=== PATIENT | female | born 1970 | race Caucasian/White ===

== ENCOUNTER 2017-01-10 06:02 | Emergency (ER) | payer OTHER ==
[~2017-01-10] VITALS: Ht 165.1 cm; Wt 101.6 kg
[~2017-01-10 06:02] MED LIST: ACETAMINOPHEN/H1 TAB PO; ALBUTEROL SULFAT3 M1 INH; CALCIUM + D 6001 TAB PO; CONCERTA18 MG PO; CONCERTA27 MG PO; FISH OIL CONC1000 MG PO; IBUPROFEN800 MG PO; KLONOPIN0.5 M1 PO; LEXAPRO 20MG M20 MG PO; LEXAPRO20 M1 PO; MEDROL DOSEPAK1 PAC PO; NEBULIZER MACHINE INH; PRILOSEC OTC20 MG PO; VENTOLIN HFA18 GM INH; VICODIN5-300 PO; VITAMIN B-121000 MC3 PO; VITAMIN D31000 UNI2 PO
--- NOTE | 2017-01-10 06:10 | ED GI/GU/ABDOMINAL COMPLAINT ---
History of Present Illness General Chief Complaint: Abdominal Pain/Flank Pain Stated Complaint: ABD PAIN LUQ RADIATING TO BACK Source: patient Exam Limitations: no limitations Vital Signs & Intake/Output Vital Signs & Intake/Output Vital Signs Date Time Temp Pulse Resp B/P Pulse O2 O2 Flow FiO2 Ox Delivery Rate 01/10 0614 97.8 98 18 132/80 98 Room Air Allergies Coded Allergies: azithromycin (Severe, GI UPSET 12/15/15) amoxicillin (Intermediate, NAUSEA 12/15/15) oxycodone (Mild, ITCHING 12/15/15) erythromycin base (NAUSEA 12/15/15) Triage Nurses Notes Reviewed? yes ? N Is pt currently ? No Onset: Abrupt Duration: hour(s): (7) Timing: multiple episodes today Quality/Severity: moderate, sharpness, severe Severity Numbers: 9 Location: left lower quadrant, right lower quadrant Radiation: back Activities at Onset: none No Modifying Factors: none HPI: This is a 46-year-old female with history of previous renal colic resents to the ER for chief complaint of upper abdominal pain radiating to the back since 1:00 last night. For dinner she had 2 pieces of pizza and for lunch she had a hamburger. She states in general she had been eating healthier until yesterday. Positive nausea but no vomiting. She states the pain was constant all night long. History of similar symptoms that lasted for an hour and went away in the past. She has never had pain that lasted this long. She describes it as sharp and deep and aching. History of left-sided flank pain with kidney stones. She is unsure if this back pain is similar to her previous kidney stone pain. Denies any urinary symptoms. Denies any observation or diarrhea. No chest pain or shortness of breath. (MARKY PARKS,COOKIE) Reconcile Medications Albuterol Sulfate (Ventolin Hfa) 90 MCG HFA.AER.AD 2 PUF INH Q4-6 PRN PRN SHORTNESS OF BREATH (Reported) Albuterol Sulfate 2.5 MG/3 ML (0.083 %) VIAL.NEB 1 Vial INH/HAMILTON Q4P PRN SHORTNESS OF BREATH (Reported) Cholecalciferol (Vitamin D3) 1,000 UNIT TABLET 3 TAB PO DAILY SUPPLEMENT ( Reported) Clonazepam (Klonopin) 0.5 MG TABLET 1 TAB PO TIDPRN PRN ANXIETY (Reported) Cyanocobalamin (Vitamin B-12) 1,000 MCG TABLET 1 TAB PO DAILY SUPPLEMENT ( Reported) Dextroamphetamine/Amphetamine (Dextroamp-Amphetamin 10 MG Tab) 10 MG TABLET 1 TAB PO DAILY PRN ADHD (Reported) Escitalopram Oxalate (Lexapro) 20 MG TABLET 1 TAB PO DAILY ANXIETY (Reported) Ferrous Sulfate 325 MG (65 MG IRON) TABLET 1 TAB PO Q48 SUPPLEMENT (Reported) (LUISA PARKS,BEBE Caldera) Past History Travel History Traveled to [place] past 21 day No Medical History Any Pertinent Medical History? see below for history Neurological: NONE EENT: NONE Cardiovascular: SINUS TACHYCARDIA Respiratory: asthma Gastrointestinal: NONE Hepatic: NONE Renal: LITHROTRIPSY Musculoskeletal: L FOOT SURGERY Psychiatric: anxiety Endocrine: NONE Blood Disorders: NONE Cancer(s): NONE History of MRSA: No History of VRE: No History of CDIFF: No Surgical History Surgical History: LTIHOTRIPSY, HYSTERECTOMY, BREAST REDUCTION, PLANTAR FASCIITIS Psychosocial History Who do you live with Significant Other Services at Home None What is your primary language [place] Tobacco Use: Never used ETOH Use: denies use Illicit Drug Use: denies illicit drug use Family History Hx Contributory? Yes (COOKIE NEGRO MD) Review of Systems Review of Systems Constitutional: Denies: chills, fever. EENTM: Reports: no symptoms. Respiratory: Denies: cough, short of breath, sputum production. Cardiovascular: Denies: chest pain, palpitations. GI: Reports: abdominal pain, nausea. Denies: vomiting. Genitourinary: Reports: no symptoms. Musculoskeletal: Reports: back pain. Skin: Reports: no symptoms. Neurological/Psychological: Reports: no symptoms. Hematologic/Endocrine: Denies: bruising, bleeding, polyuria, polydipsia. Immunologic/Allergic: Denies: splenectomy. All Other Systems: Reviewed and Negative (COOKIE NEGRO MD) Physical Exam Physical Exam General Appearance: well developed/nourished, alert, awake, mild distress, moderate distress Head: atraumatic, normal appearance Eyes: Bilateral: normal appearance, PERRL, EOMI. Ears, Nose, Throat, Mouth: hearing grossly normal, moist mucous membrane Neck: normal inspection, supple, full range of motion Respiratory: normal breath sounds, chest non-tender, no respiratory distress Cardiovascular: regular rate/rhythm Peripheral Pulses: 2+ radial (R), 2+ radial (L) Gastrointestinal: soft, tenderness (RUQ), POSITIVE MURPHYS Back: normal inspection, normal range of motion Extremities: normal range of motion Neurologic/Psych: no motor/sensory deficits, awake, alert, oriented x 3 Skin: intact, normal color, warm/dry Core Measures ACS in differential dx? No Severe Sepsis Present: No Septic Shock Present: No (MARKY PARKS,COOKIE) Progress Differential Diagnosis: biliary colic, cholecystitis, kidney stone, pancreatitis , peptic ulcer, PUD/GERD, perforated viscous, UTI/pyelo Plan of Care: Orders Procedure Date/time Status URINALYSIS 01/10 618 Complete LIPASE 01/10 618 Complete COMPREHENSIVE METABOLIC PANEL 01/10 618 Complete CBC WITHOUT DIFFERENTIAL 01/10 618 Complete AMYLASE 01/10 618 Complete Laboratory Tests 01/10/17 0752: Urinalysis LIGHT H, Urine Color YEL, Urine Clarity HAZY H, Urine pH 7.5, Ur Specific Zirconia 1.020, Urine Protein 30 H, Urine Ketones NEG, Urine Nitrite NEG, Urine Bilirubin NEG, Urine Urobilinogen 0.2, Ur Leukocyte Esterase NEG, Ur Microscopic SEDIMENT EXAMINED, Urine RBC RARE, Urine WBC 1-3 H, Ur Epithelial Cells MOD H, Urine Bacteria FEW H, Hyaline Casts FEW H, Granular Casts FEW H , Urine Mucus MOD H, Urine Hemoglobin NEG, Urine Glucose NEG 01/10/17 0640: Anion Gap 11, Estimated GFR > 60, BUN/Creatinine Ratio 17.1, Glucose 104 H, Calcium 9.6, Total Bilirubin 0.3, AST 14, ALT 24, Alkaline Phosphatase 61, Total Protein 7.0, Albumin 4.1, Globulin 2.9, Albumin/Globulin Ratio 1.4, Amylase 47, Lipase 103, CBC w Diff NO MAN DIFF REQ, RBC 4.69, MCV 83.2, MCH 27.5, RDW 14.1, MPV 8.9, Gran % 70.8, Lymphocytes % 22.7, Monocytes % 4.7, Eosinophils % 1.4, Basophils % 0.4, Absolute Granulocytes 6.9 H, Absolute Lymphocytes 2.2, Absolute Monocytes 0.5, Absolute Eosinophils 0.1, Absolute Basophils 0, PUBS MCHC 33.1 Diagnostic Imaging: Viewed by Me: Ultrasound. Discussed w/RAD: Ultrasound. Initial ED EKG: none Hand-Off Endorsed To: BEBE MORAN MD Endorsed Time: 0700 Pending: labs, ultrasound (MARKY PARKS,COOKIE) Radiology Impression: PATIENT: SHIRA ESCALANTE PRESENT AGE: 46 PATIENT ACCOUNT NO: [id number] : 70 LOCATION: [facility] ORDERING PHYSICIAN: BEBE MORAN MD SERVICE DATE: 01/10/17 EXAM TYPE: US - US-COMPLETE ABDOMEN EXAMINATION: US ABDOMEN COMPLETE CLINICAL INFORMATION: Flank pain per. COMPARISON: CT abdomen and pelvis 05/29/2014. TECHNIQUE: Real-time imaging of the abdominal viscera. FINDINGS: The exam is limited secondary to body habitus. PANCREAS: Normal. ABDOMINAL AORTA: The proximal segment is normal in caliber. INFERIOR VENA CAVA: Visualized portions are normal. LIVER: The liver demonstrates normal size, contour and increased echogenicity echogenicity. No focal lesion or intrahepatic biliary duct dilatation. GALLBLADDER: The gallbladder is distended suggestive of hydrops. It measures 11.9 cm in length. The gallbladder is physiologically distended without evidence of stones, sludge, polyps, wall thickening or pericholecystic fluid. COMMON BILE DUCT: Normal in caliber measuring 0.6 cm in diameter. RIGHT KIDNEY: Normal. No hydronephrosis. No renal calculi or focal parenchymal lesions. The kidney measures 10.5 cm in maximum dimension. LEFT KIDNEY: Normal. No hydronephrosis. No renal calculi or focal parenchymal lesions. The kidney measures 12.3 cm in maximum dimension. SPLEEN: Normal. The spleen measures 9.8 cm in maximum dimension. FREE FLUID: None. IMPRESSION: Echogenic liver probably from fatty infiltration. Otherwise rest of the abdominal ultrasound is unremarkable. DICTATED BY: LAVELL CARDONA MD DATE/TIME DICTATED:01/10/17920 [employer] HAND:IRMA DATE/TIME TRANSCRIBED:01/10/17920 CONFIDENTIAL, DO NOT COPY WITHOUT APPROPRIATE AUTHORIZATION. <Electronically signed in Other Vendor System> SIGNED BY: LAVELL CARDONA MD 01/10/17 0928 (BEBE MORAN MD) Departure Departure Condition: Stable Clinical Impression Primary Impression: Abdominal pain Referrals: GRACIELA LINDSEY MD (PCP/Family) Departure Forms: Customer Survey General Discharge Information (MARKY PARKSCOOKIE) Departure Disposition: HOME OR SELF CARE Additional Instructions: RETURN IF SYMPTOMS WORSEN OR FOR ANY CONCERNS Prescriptions: Current Visit Scripts Tramadol HCl 1 TAB PO Q6P PRN PAIN #20 TAB (LUISA PARKS,BEBE Caldera)
[2017-01-10 06:14] VITALS: BP 132/80
[2017-01-10 06:55] LABS: ABSOLUTE BASOPHIL COUNT 0 /CUMM (0.0-0.2); ABSOLUTE EOSINOPHIL COUNT 0.1 /CUMM (0.0-0.7); ABSOLUTE GRANULOCYTE CT 6.9 /CUMM (1.4-6.5); ABSOLUTE LYMPH COUNT 2.2 /CUMM (1.2-3.4); ABSOLUTE MONOCYTE COUNT 0.5 /CUMM (0.10-0.60); BASOPHIL % 0.4 % (0.0-2.0); EOSINOPHIL % 1.4 % (0-5); GRANULOCYTE % 70.8 % (42.2-75.2); MEAN CORPUSCULAR HGB 27.5 PG (27.0-31.0); MEAN CORPUSCULAR HGB CONC 33.1 G/DL (33.0-37.0); MEAN CORPUSCULAR VOLUME 83.2 FL (81.0-99.0); MEAN PLATELET VOLUME 8.9 FL (7.4-10.4); PLATELET COUNT 270 /CUMM (130-400); RBC DISTRIBUTION WIDTH 14.1 % (11.5-14.5); RED BLOOD CELL CT 4.69 /CUMM (4.20-5.40); WHITE BLOOD CELL COUNT 9.7 /CUMM (4.8-10.8)
--- NOTE | 2017-01-10 09:28 | ULTRASOUND REPORT ---
EXAMINATION: US ABDOMEN COMPLETE CLINICAL INFORMATION: Flank pain per. COMPARISON: CT abdomen and pelvis 05/29/2014. TECHNIQUE: Real-time imaging of the abdominal viscera. FINDINGS: The exam is limited secondary to body habitus. PANCREAS: Normal. ABDOMINAL AORTA: The proximal segment is normal in caliber. INFERIOR VENA CAVA: Visualized portions are normal. LIVER: The liver demonstrates normal size, contour and increased echogenicity echogenicity. No focal lesion or intrahepatic biliary duct dilatation. GALLBLADDER: The gallbladder is distended suggestive of hydrops. It measures 11.9 cm in length. The gallbladder is physiologically distended without evidence of stones, sludge, polyps, wall thickening or pericholecystic fluid. COMMON BILE DUCT: Normal in caliber measuring 0.6 cm in diameter. RIGHT KIDNEY: Normal. No hydronephrosis. No renal calculi or focal parenchymal lesions. The kidney measures 10.5 cm in maximum dimension. LEFT KIDNEY: Normal. No hydronephrosis. No renal calculi or focal parenchymal lesions. The kidney measures 12.3 cm in maximum dimension. SPLEEN: Normal. The spleen measures 9.8 cm in maximum dimension. FREE FLUID: None. IMPRESSION: Echogenic liver probably from fatty infiltration. Otherwise rest of the abdominal ultrasound is unremarkable.
[2017-01-10] MEDS ORDERED: DEXTROAMP-AMPHE10 MG PO (09:38)
[2017-01-10] MEDS ORDERED: ALBUTEROL2.5 MG/3 M INH/SOL (09:40)
[2017-01-10] MEDS ORDERED: FERROUS SULFAT325 M3 PO (09:40)
[2017-01-10] MEDS ORDERED: TRAMADOL HCL50 M1 PO (10:03)
== END 2017-01-10 10:10 ==
LOC: ERH 06:02
PROVIDERS: Emergency Medicine
DX: R10.11 Right upper quadrant pain (principal)
CPT/HCPCS: 81001; 96361; 96374; 96375; J2405